=== PATIENT | female | born 2000 | race Hispanic/Latino ===

== ENCOUNTER 2022-03-14 17:29 | Emergency (ER) | payer MEDICAID, OTHER ==
[~2022-03-14] VITALS: Ht 162.6 cm; Wt 63.5 kg
[2022-03-14 17:37] VITALS: BP 114/68
[2022-03-14] MEDS ORDERED: 0.9%NACL 1000ML 2,000 ML IV SCH (21:00)
[2022-03-14 21:10] LABS: BASOPHILS % (AUTO) 0.2 % (0.0-5.0); HEMATOCRIT 31.7 % (36-48); MEAN CORPUSCULAR HEMOGLOBIN 22.7 pg (27.0-33.0); MEAN CORPUSCULAR HGB CONC 31.9 g/dL (32.0-36.0); MEAN CORPUSCULAR VOLUME 71.4 fL (79-99); MONOCYTES % (AUTO) 4.4 % (3.0-13.0); NEUTROPHILS % (AUTO) 71.1 % (40.0-77.0); PLATELET COUNT (AUTO) 145 K/uL (130-400); RED BLOOD CELL COUNT(AUTO) 4.44 MIL/uL (4.00-5.50); RED CELL DISTRIBUTION WIDTH 14.8 % (11.0-15.5); WHITE BLOOD COUNT (AUTO) 6.4 K/uL (4.8-10.8)
[2022-03-14 21:20] LABS: INR 0.98 (0.85-1.15); PROTHROMBIN TIME 10.7 SEC (9.6-11.6)
[2022-03-14 21:21] LABS: CREATININE 0.7 mg/dL (0.5-1.5); PARTIAL THROMBOPLASTIN TIME 25.9 SEC (26.3-35.5); POTASSIUM 3.6 mmol/L (3.5-5.1)
[2022-03-14 21:28] LABS: ALBUMIN 3.8 g/dL (3.5-5.0); TOTAL PROTEIN, SERUM 7.5 g/dL (6.0-8.3)
[2022-03-14] MEDS ORDERED: AZIT500T2 PO (21:30)
[2022-03-14] MEDS ORDERED: ALBU90AE2 IH (21:30)
[2022-03-14] MEDS ORDERED: PRED20TA3 PO (21:30)
== END 2022-03-14 23:47 | disposition home or self-care (01) ==
LOC: EDH 17:29
DX: J20.9 Acute bronchitis, unspecified (principal); R10.11 Right upper quadrant pain; F32.A Depression, unspecified; F17.200 Nicotine dependence, unspecified, uncomplicated; Z90.89 Acquired absence of other organs
CPT/HCPCS: 36415; 71045; 76705; 80053; 82550; 83605; 84484; 85025; 85610; 85730; 87040